=== PATIENT | female | born 1995 | race Caucasian/White ===

== ENCOUNTER 2017-03-06 00:12 | Emergency (ER) | payer SELFPAY ==
[~2017-03-06] VITALS: Ht 165.1 cm; Wt 72.6 kg
[2017-03-06 00:16] VITALS: BP 124/86
--- NOTE | 2017-03-06 01:18 | NUR ---
AMBULATED TO ER BED 3
--- NOTE | 2017-03-06 01:20 | NUR ---
21/F CAME IN W C/O ALLERGIC REATION TO HAVING MUSHROOMS DURING DINNER AT 1730 TODAY, PT REPORTS SHE FELT HER THROAT CLOSING AND BROKE OUT IN HIVES SO SHE WENT HOME AT [facility] AND EPI AT 1800. HX MUSHROOM ALLERGY. PT DENIES ANY DYSPNEA AT THIS TIME, TONGUE MIDLINE WITHOUT EDEMA. PT STATES "I JUST FEEL VERY SWOLLEN RIGHT NOW". NO RASHES NOTED AT THIS TIME. PT AOX4, ABLE TO SPEAK AT FULL LENGTH WITHOUT DIFFICULTY. DENIES OTHER PMH
--- NOTE | 2017-03-06 01:43 | NUR ---
Patient being evaluated by Dr. Mckeon at bedside.
[2017-03-06] MEDS ORDERED: FAMOTIDINE 20 MG TAB PO ONE (01:45)
--- NOTE | 2017-03-06 01:58 | NUR ---
po meds [id number] at this time
--- NOTE | 2017-03-06 03:03 | NUR ---
Patient discharged with v/s stable. Written and verbal after care instructions given and explained. Patient verbalized understanding. Ambulatory with steady gait. All questions addressed prior to discharge. Advised to follow up with PMD.
[2017-03-06 03:04] VITALS: BP 107/67
== END 2017-03-06 03:03 | disposition home or self-care (01) ==
LOC: MED 00:12
DX: T78.1XXA Other adverse food reactions, not elsewhere classified, initial encounter (principal); R11.0 Nausea; R10.9 Unspecified abdominal pain; M79.89 Other specified soft tissue disorders; F17.210 Nicotine dependence, cigarettes, uncomplicated; Z91.018 Allergy to other foods; X58.XXXA Exposure to other specified factors, initial encounter
CPT/HCPCS: 99282